=== PATIENT | male | born 1945 | race Hispanic/Latino ===

== ENCOUNTER 2016-12-22 12:55 | Emergency (ER) | payer SELFPAY ==
[2016-12-23 00:47] LABS: Basophils % (Auto) 0.5 % (0.0-1.8); Blood Urea Nitrogen 18 mg/dL (9-20); Calcium 9.1 mg/dL (8.4-10.2); Carbon Dioxide 27 mmol/L (22-30); Glucose 113 mg/dL (75-100); Hemoglobin 14.8 gm/dl (11.8-15.2); Mean Corpuscular HGB Conc 34 % (32-34); Mean Corpuscular Hemoglobin 29 pg (28-32); Mean Corpuscular Volume 86 fl (84-94); Platelet Count 189 K/mm3 (140-440); Potassium 3.7 mmol/L (3.6-5.0); Red Blood Count 5.09 M/mm3 (3.65-5.03); Red Cell Distribution Width 14.3 % (13.2-15.2); Sodium 141 mmol/L (137-145); White Blood Count 5.3 K/mm3 (4.5-11.0)
[2016-12-23 00:50] LABS: Anion Gap 17 mmol/L
[2016-12-23 02:10] VITALS: BP 125/68
--- NOTE | 2016-12-23 05:35 | Emergency Department Report ---
- General Chief Complaint: Dyspnea/Respdistress Time Seen by Provider: 12/23/16 02:25 Source: patient Mode of arrival: Ambulatory Limitations: No Limitations - History of Present Illness Initial Comments: 71-year-old male with a past medical history of OK, pacemaker, and hypertension presents to the hospital with complaints of cough productive of yellow and white sputum 4 days. No fever reported. Patient complains of 6/10 chest pain with coughing. No present nausea, vomiting, diaphoresis. No shortness of breath reported. Patient likely supine in the bed without any respiratory distress. Requesting a refill in his lisinopril 40 mg twice a day. Pt apparently had whiskey prior to arrival. PMD: None - Related Data Home Medications Medication Instructions Recorded Confirmed Last Taken Carvedilol [Coreg] 6.25 mg PO BID 12/23/16 12/23/16 12/22/16 Furosemide [Lasix TAB] 40 mg PO QDAY 12/23/16 12/23/16 12/22/16 Previous Rx's Medication Instructions Recorded Last Taken Type Azithromycin [Zithromax Z-JACK] 1 dose PO DAILY 5 Days 12/23/16 Unknown Rx Benzonatate [Tessalon Perles] 100 mg PO Q8HR PRN #30 capsule 12/23/16 Unknown Rx Lisinopril [Zestril] 40 mg PO QHS #30 tablet 12/23/16 Unknown Rx Allergies Allergy/AdvReac Type Severity Reaction Status Date / Time No Known Allergies Allergy Unverified 12/22/16 23:36 ED Review of Systems ROS: Stated complaint: Other details as noted in HPI Comment: All other systems reviewed and negative Other: Constitutional: No fevers chills Eyes: No eye pain visual changes ENT: No ear pain or throat pain Neck: Denies pain Respiratory: as per hpi Cardiovascular: Denies chest pain, palpitations, syncope GI: Denies abdominal pain, nausea, vomiting, diarrhea : Denies dysuria Musculoskeletal: Denies back pain Skin: Denies rash, lesions, erythema Neurologic: Denies headache, numbness, weakness Psychiatric: Denies suicidal ideation, hallucinations y ED Past Medical Hx - Past Medical History Hx Hypertension: Yes Hx Heart Attack/AMI: Yes Hx COPD: Yes - Surgical History Hx Pacemaker: Yes Hx Internal Defibrillator: Yes Hx Cholecystectomy: Yes - Social History Smoking Status: Never Smoker Substance Use Type: Alcohol - Medications Home Medications: Home Medications Medication Instructions Recorded Confirmed Last Taken Type Azithromycin [Zithromax Z-JACK] 1 dose PO DAILY 5 Days 12/23/16 Unknown Rx Benzonatate [Tessalon Perles] 100 mg PO Q8HR PRN #30 capsule 12/23/16 Unknown Rx Carvedilol [Coreg] 6.25 mg PO BID 12/23/16 12/23/16 12/22/16 History Furosemide [Lasix TAB] 40 mg PO QDAY 12/23/16 12/23/16 12/22/16 History Lisinopril [Zestril] 40 mg PO QHS #30 tablet 12/23/16 Unknown Rx ED Physical Exam - General Limitations: No Limitations - Other Other exam information: General: No limitations, patient is alert in no acute distress Head exam: Atraumatic, normocephalic Eyes exam: Normal appearance, pupils equal reactive to light, extraocular movements intact ENT: Moist mucous membrane, normal oropharynx Neck exam: Normal inspection, full range of motion, no meningismus nontender Respiratory exam: Clear to auscultation bilateral, no wheezes, rales, crackles Cardiovascular: Normal rate and rhythm, normal heart sounds Abdomen: Soft, nondistended, and nontender, with normal bowel sounds, no rebound, or guarding Extremity: Full range of motion normal inspection no deformity Back: Normal Inspection, full range of motion, no tenderness Neurologic: Alert, oriented x3, cranial nerves intact, no motor or sensory deficit Psychiatric: normal affect, normal mood Skin: Warm, dry, intact ED Course Vital Signs 12/22/16 12/22/16 12/23/16 13:00 23:31 02:10 Temperature 97.6 F 98 F 98.2 F Pulse Rate 62 64 62 Respiratory 21 18 18 Rate Blood Pressure 126/65 123/99 Blood Pressure 125/68 [Left] O2 Sat by Pulse 96 98 96 Oximetry 12/23/16 03:43 Temperature Pulse Rate Respiratory 15 Rate Blood Pressure Blood Pressure [Left] O2 Sat by Pulse 98 Oximetry - Reevaluation(s) Reevaluation #1: 12/23/16 05:35 Patient remained stable in the ED ED Medical Decision Making - Lab Data Result diagrams: 12/22/16 23:51 12/22/16 23:51 Lab Results 12/22/16 12/22/16 Range/Units 23:51 23:51 WBC 5.3 (4.5-11.0) K/mm3 RBC 5.09 H (3.65-5.03) M/mm3 Hgb 14.8 (11.8-15.2) gm/dl Hct 44.0 (35.5-45.6) % MCV 86 (84-94) fl MCH 29 (28-32) pg MCHC 34 (32-34) % RDW 14.3 (13.2-15.2) % Plt Count 189 (140-440) K/mm3 Lymph % (Auto) 37.1 H (13.4-35.0) % Webster % (Auto) 11.6 H (0.0-7.3) % Eos % (Auto) 5.0 H (0.0-4.3) % Baso % (Auto) 0.5 (0.0-1.8) % Lymph # 2.0 (1.2-5.4) K/mm3 Webster # 0.6 (0.0-0.8) K/mm3 Eos # 0.3 (0.0-0.4) K/mm3 Baso # 0.0 (0.0-0.1) K/mm3 Seg Neutrophils % 45.8 (40.0-70.0) % Seg Neutrophils # 2.4 (1.8-7.7) K/mm3 Sodium 141 (137-145) mmol/L Potassium 3.7 (3.6-5.0) mmol/L Chloride 101.0 (98-107) mmol/L Carbon Dioxide 27 (22-30) mmol/L Anion Gap 17 mmol/L BUN 18 (9-20) mg/dL Creatinine 1.0 (0.8-1.5) mg/dL Estimated GFR > 60 ml/min BUN/Creatinine Ratio 18.00 % Glucose 113 H (75-100) mg/dL Calcium 9.1 (8.4-10.2) mg/dL Troponin T < 0.010 (0.00-0.029) ng/mL - EKG Data -: EKG Interpreted by Me (electornic atrial pacemaker 68) - Radiology Data Radiology results: image reviewed (chest xray: naf pacemaker) - Medical Decision Making No acute pneumonia or CHF identified. Patient will be treated for acute bronchitis. Requesting a refill lisinopril 40 mg twice a day. This is significant dose. I do not feel comfortable prescribing this dose. His lisinopril bottle actually says lisinopril 40 mg once a day and not twice a day. He'll be encouraged to follow-up with a primary care doctor for further medication adjustment - Differential Diagnosis CHF, unstable angina, bronchitis, pneumonia Critical Care Time: No Critical care attestation.: If time is entered above; I have spent that time in minutes in the direct care of this critically ill patient, excluding procedure time. ED Disposition Clinical Impression: Acute bronchitis, Medication refill Disposition: DISCHARGED TO HOME OR SELFCARE Is pt being admited?: No Does the pt Need Aspirin: No Condition: Stable Instructions: Acute Bronchitis (ED) Additional Instructions: Lisinopril 40 mg twice a day is a very large dose of this medication. I have prescribed lisinopril 40 mg once a day as your pill bottle states. For further medication adjustment please follow-up with the primary care doctor, clinic, or pharmacist intern provided. Take the antibiotics as prescribed. Return if symptoms worsen. Prescriptions: Azithromycin [Zithromax Z-JACK] 1 dose PO DAILY 5 Days Benzonatate [Tessalon Perles] 100 mg PO Q8HR PRN #30 capsule PRN Reason: Cough Lisinopril [Zestril] 40 mg PO QHS #30 tablet Referrals: DEO BOLDEN MD [Staff Physician] - 3-5 Days (pharmacist intern) OSWALDO MARSHALL MD, PHD [Staff Physician] - 3-5 Days (PMD ) [facility] [Provider Group] - 3-5 Days Time of Disposition: 05:38
--- NOTE | 2016-12-23 07:17 | XRay Report ---
ROUTINE CHEST, TWO VIEWS: HISTORY: Shortness of breath. No comparison. A 2-lead pacemaker device is in position. The trachea, heart, mediastinal contour, lung hernandez and bony thorax are unremarkable. IMPRESSION: Unremarkable chest x-ray.
== END 2016-12-23 07:00 | disposition home or self-care (01) ==
LOC: ED 12:55
DX: J20.9 Acute bronchitis, unspecified (principal); I10 Essential (primary) hypertension; I25.2 Old myocardial infarction; J44.9 Chronic obstructive pulmonary disease, unspecified; Z90.49 Acquired absence of other specified parts of digestive tract; Z95.0 Presence of cardiac pacemaker
CPT/HCPCS: 36415; 71020; 80048; 84484; 85025; 93005; 93010; 99284

== ENCOUNTER 2017-10-13 15:36 | Emergency (ER) | payer MEDICARE ==
[2017-10-13 15:48] VITALS: BP 152/87
--- NOTE | 2017-10-13 16:29 | Emergency Department Report ---
- General Chief Complaint: Dyspnea/Respdistress Stated Complaint: GENERALIZED PAIN Time Seen by Provider: 10/13/17 16:19 Source: patient Mode of arrival: Ambulatory Limitations: No Limitations - History of Present Illness Initial Comments: Patient is 72 years old male history of coronary artery disease came today with 4 day history of cough productive of greenish sputum associated with chills. Patient denied any chest pain or shortness of breath. No nausea no vomiting. Patient stated this is his usual bronchitis and he is refusing chest x-ray and blood work he stated that he noted that he have this is an acute bronchitis and all he needed to use antibiotic. I explained to the patient the possibility of pneumonia and other infection but he wanted to get the antibiotic only. MD Complaint: fever, cough Associated Symptoms: fever, cough. denies: stiff neck, shortness of breath - Related Data Home Medications Medication Instructions Recorded Confirmed Last Taken Carvedilol [Coreg] 6.25 mg PO BID 12/23/16 12/23/16 12/22/16 Furosemide [Lasix TAB] 40 mg PO QDAY 12/23/16 12/23/16 12/22/16 Previous Rx's Medication Instructions Recorded Last Taken Type Azithromycin [Zithromax Z-JACK] 1 dose PO DAILY 5 Days tab 12/23/16 Unknown Rx Benzonatate [Tessalon Perles] 100 mg PO Q8HR PRN #30 capsule 12/23/16 Unknown Rx Lisinopril [Zestril] 40 mg PO QHS #30 tablet 12/23/16 Unknown Rx Allergies Allergy/AdvReac Type Severity Reaction Status Date / Time No Known Allergies Allergy Verified 10/13/17 15:39 ED Review of Systems ROS: Stated complaint: GENERALIZED PAIN Other details as noted in HPI Comment: All other systems reviewed and negative Constitutional: chills. denies: fever Respiratory: cough. denies: orthopnea, shortness of breath, SOB with exertion, SOB at rest, stridor Cardiovascular: denies: chest pain, palpitations Gastrointestinal: denies: abdominal pain, nausea, vomiting Neurological: denies: headache ED Past Medical Hx - Past Medical History Hx Hypertension: Yes Hx Heart Attack/AMI: Yes Hx Congestive Heart Failure: Yes Hx COPD: Yes - Surgical History Hx Pacemaker: Yes Hx Internal Defibrillator: Yes Hx Cholecystectomy: Yes - Social History Smoking Status: Former Smoker Substance Use Type: None - Medications Home Medications: Home Medications Medication Instructions Recorded Confirmed Last Taken Type Azithromycin [Zithromax Z-JACK] 1 dose PO DAILY 5 Days tab 12/23/16 Unknown Rx Benzonatate [Tessalon Perles] 100 mg PO Q8HR PRN #30 capsule 12/23/16 Unknown Rx Carvedilol [Coreg] 6.25 mg PO BID 12/23/16 12/23/16 12/22/16 History Furosemide [Lasix TAB] 40 mg PO QDAY 12/23/16 12/23/16 12/22/16 History Lisinopril [Zestril] 40 mg PO QHS #30 tablet 12/23/16 Unknown Rx ED Physical Exam - General Limitations: No Limitations General appearance: alert, in no apparent distress - Head Head exam: Present: atraumatic, normocephalic - Eye Eye exam: Present: normal appearance, PERRL - Neck Neck exam: Present: normal inspection, full ROM. Absent: tenderness, meningismus, lymphadenopathy - Respiratory Respiratory exam: Present: normal lung sounds bilaterally. Absent: respiratory distress, wheezes, rales, rhonchi, stridor, chest wall tenderness, accessory muscle use, decreased breath sounds, prolonged expiratory - Cardiovascular Cardiovascular Exam: Present: regular rate, normal rhythm, normal heart sounds - GI/Abdominal GI/Abdominal exam: Present: soft, normal bowel sounds. Absent: distended, tenderness, guarding, rebound, rigid, mass, bruit, pulsatile mass - Neurological Exam Neurological exam: Present: alert, oriented X3, CN II-XII intact, normal gait - Skin Skin exam: Present: warm, intact, normal color ED Course Vital Signs 10/13/17 15:44 Temperature 97 F L Pulse Rate 77 Respiratory 20 Rate Blood Pressure 152/87 O2 Sat by Pulse 98 Oximetry - Reevaluation(s) Reevaluation #1: 10/13/17 16:28 Physician lying in bed comfortable in no acute distress, no respiratory distress. Critical care attestation.: If time is entered above; I have spent that time in minutes in the direct care of this critically ill patient, excluding procedure time. ED Disposition Clinical Impression: Acute bronchitis Disposition: DC-01 TO HOME OR SELFCARE Is pt being admited?: No Condition: Stable Instructions: Acute Bronchitis (ED)
== END 2017-10-13 16:48 | disposition home or self-care (01) ==
LOC: ED 15:36
DX: J20.9 Acute bronchitis, unspecified (principal); I10 Essential (primary) hypertension; I25.2 Old myocardial infarction; I50.9 Heart failure, unspecified; J44.9 Chronic obstructive pulmonary disease, unspecified
CPT/HCPCS: 99282

== ENCOUNTER 2018-01-16 08:58 | Emergency (ER) | payer MEDICARE ==
[2018-01-16 10:17] LABS: BUN/Creatinine Ratio 25; Blood Urea Nitrogen 27 mg/dL (9-20); Calcium 8.8 mg/dL (8.4-10.2); Hemolysis Index 32
[2018-01-16 10:18] LABS: Basophils % (Auto) 0.6 % (0.0-1.8); Eosinophils # (Auto) 0.1 K/mm3 (0.0-0.4); Eosinophils % (Auto) 2.8 % (0.0-4.3); Hematocrit 45.2 % (35.5-45.6); Hemoglobin 15.2 gm/dl (11.8-15.2); Lymphocytes # (Auto) 1.2 K/mm3 (1.2-5.4); Lymphocytes % (Auto) 22.8 % (13.4-35.0); Mean Corpuscular HGB Conc 34 % (32-34); Mean Corpuscular Hemoglobin 29 pg (28-32); Mean Corpuscular Volume 87 fl (84-94); Monocytes # (Auto) 0.5 K/mm3 (0.0-0.8); Monocytes % (Auto) 8.5 % (0.0-7.3); Platelet Count 160 K/mm3 (140-440); Red Blood Count 5.18 M/mm3 (3.65-5.03); Red Cell Distribution Width 13.7 % (13.2-15.2)
--- NOTE | 2018-01-16 11:12 | XRay Report ---
ROUTINE CHEST, TWO VIEWS: HISTORY: Shortness of breath. The trachea, heart, mediastinal contour, lung hernandez and bony thorax are unremarkable. 2-lead pacemaker devices unchanged since 12/23/16. IMPRESSION: No acute cardiopulmonary process.
[2018-01-16 20:28] VITALS: BP 164/84
== END 2018-01-16 21:00 | disposition left against medical advice (07) ==
LOC: ED 08:58
DX: R06.02 Shortness of breath (principal); Z53.21 Procedure and treatment not carried out due to patient leaving prior to being seen by health care provider
CPT/HCPCS: 36415; 71046; 80048; 83880; 84484; 85025; 93005; 93010